=== PATIENT | female | born 1930 | race Caucasian/White ===

== ENCOUNTER 2017-12-28 06:57 | Day surgery (SDC) | payer MEDICARE, BC ==
[2017-12-28] VITALS (8 sets, daily range): BP systolic 100–112; BP diastolic 57–61; PULSE 56–83; TEMP 97.6–98.3
[~2017-12-28] VITALS: Ht 172.7 cm; Wt 55.7 kg
[~2017-12-28 06:57] MED LIST: AMOXICILLIN 8751 TAB PO; BIOTIN1 POW; CENTRUM SILVER1 TAB; FISH OIL 1000MG1 CAP PO; PRILOSEC 20MG20 MG; VITAMIN D1000 IU
[2017-12-28] MEDS ORDERED: BIOTIN PO (08:01)
[2017-12-28] MEDS ORDERED: CEPHALEXIN500 M1 (08:05)
[2017-12-28] MEDS ORDERED: NORCO 325 MG-51 TAB PO (11:26)
[2017-12-28] MEDS ORDERED: LEVAQUIN 5500 MG/TA1 PO (11:26)
[2017-12-28] MEDS ORDERED: SENOKOT S 50 MG1 TAB PO (11:27)
[2017-12-28] MEDS ORDERED: PYRIDIUM 100MG100 MG PO (11:28)
== END 2017-12-28 13:10 | disposition home or self-care (01) ==
LOC: SDCO 06:57
DX: N20.0 Calculus of kidney (principal); N39.0 Urinary tract infection, site not specified; K21.9 Gastro-esophageal reflux disease without esophagitis; M19.90 Unspecified osteoarthritis, unspecified site; Z90.49 Acquired absence of other specified parts of digestive tract; Z90.710 Acquired absence of both cervix and uterus; Z96.642 Presence of left artificial hip joint; Z86.010 Personal history of colon polyps; Z85.828 Personal history of other malignant neoplasm of skin; Z80.0 Family history of malignant neoplasm of digestive organs; Z82.5 Family history of asthma and other chronic lower respiratory diseases
CPT/HCPCS: C1769; C2617; J0690; J1100; J2405; J2704; J3010; J7120; Q9967

== ENCOUNTER 2018-01-08 08:05 | Day surgery (SDC) | payer MEDICARE, BC ==
[2018-01-08] VITALS (12 sets, daily range): BP systolic 92–117; BP diastolic 46–71; PULSE 56–88; TEMP 97.3–98.4
[~2018-01-08] VITALS: Ht 170.2 cm; Wt 56.0 kg
[~2018-01-08 08:05] MED LIST changes: +BIOTIN PO; +CEPHALEXIN500 M1; +LEVAQUIN 5500 MG/TA1 PO; +NORCO 325 MG-51 TAB PO; +PYRIDIUM 100MG100 MG PO; +SENOKOT S 50 MG1 TAB PO
[2018-01-08] MEDS ORDERED: NATURE'S BLE1000 MCG (08:46)
[2018-01-08] MEDS ORDERED: CRANBERRY500 M3 PO (08:47)
[2018-01-09 00:10] VITALS: BP 83/42; PULSE 53; TEMP 97.9
[2018-01-09 05:40] VITALS: BP 98/50; PULSE 57; TEMP 98.5
[2018-01-09 08:20] VITALS: BP 100/62; PULSE 57; TEMP 97.8
== END 2018-01-09 13:18 | disposition home or self-care (01) ==
LOC: SDCO 08:05 → SURG 13:00 → OB 18:50 → SDCO 01-09 13:18
DX: N20.0 Calculus of kidney (principal); K21.9 Gastro-esophageal reflux disease without esophagitis; M19.90 Unspecified osteoarthritis, unspecified site; Z90.49 Acquired absence of other specified parts of digestive tract; Z90.710 Acquired absence of both cervix and uterus; Z96.642 Presence of left artificial hip joint; Z88.8 Allergy status to other drugs, medicaments and biological substances; Z85.828 Personal history of other malignant neoplasm of skin; Z86.010 Personal history of colon polyps; Z80.0 Family history of malignant neoplasm of digestive organs; Z82.5 Family history of asthma and other chronic lower respiratory diseases
CPT/HCPCS: OP; A9284; C1769; C2617; J0690; J1100; J1885; J2405; J2704; J3010; J7120